=== PATIENT | female | born 1975 | race Caucasian/White ===

== ENCOUNTER → 2023-02-05 | Emergency (ER) | payer BC, MEDICARE ==
[~2023-02-05] VITALS: Ht 154.9 cm; Wt 99.8 kg
[~2023-02-05] MED LIST: BECL8.7H EN; CALC-866 PO; CLON1TAB12 PO; CLOP75TA32 PO; LORA-699 PO; MONT-39 PO; PANT40TA54 PO; PATADAY 0.2% OU; PROM12.513 PO; SERT-439 PO; TERI2.4P SQ; TOPI25TA48 PO; VIT C PO; probiotic PO
[2023-02-05 11:44] VITALS: BP 127/94; PULSE 100; RESP 22
== END ==
LOC: EDH 11:43
DX: S67.01XA Crushing injury of right thumb, initial encounter (principal); I10 Essential (primary) hypertension; Z79.02 Long term (current) use of antithrombotics/antiplatelets; Z88.0 Allergy status to penicillin; Z88.1 Allergy status to other antibiotic agents; Z88.2 Allergy status to sulfonamides; Z88.6 Allergy status to analgesic agent; Z95.810 Presence of automatic (implantable) cardiac defibrillator; W23.0XXA Caught, crushed, jammed, or pinched between moving objects, initial encounter; Y93.89 Activity, other specified; Y92.89 Other specified places as the place of occurrence of the external cause; Y99.8 Other external cause status
CPT/HCPCS: 73140